=== PATIENT | female | born 1975 | race Caucasian/White ===

== ENCOUNTER → 2020-09-12 00:56 | Outpatient (CLI) | payer BC, SELFPAY ==
[2020-09-12 20:53] LABS: SARS-CoV-2 RNA PCR Negative
== END ==
PROVIDERS: PCP Internal Medicine; Visit Provider Internal Medicine Gastroenterology
DX: Z01.812 Encounter for preprocedural laboratory examination (principal); Z20.822 Contact with and (suspected) exposure to COVID-19
CPT/HCPCS: C9803; U0003; U0005

== ENCOUNTER 2020-09-16 00:36 | Day surgery (SDC) | payer BC, SELFPAY ==
[2020-09-08 15:32] VITALS: BMI 29.4
[2020-09-16 10:18] VITALS: BP 133/100; PULSE 65; RESP 16; TEMP 36.4; O2SAT 99; BMI 30.1
[2020-09-16] MEDS: LACTATED RINGERS 1,000 ML 150 ML IV CONT (10:30)
--- NOTE | 2020-09-16 10:57 | WPDANESEPPF ---
Anes - Initial Pre Proc Eval Procedure: Operation Date: 09/16/20 11:30 Proposed Procedures p Esophagogastroduodenoscopy - Hermelindo Stewart MD Date/Time: 09/16/20 10:57 Surgeon: Hermelindo Stewart MD Pre Op Diagnosis: nausea, RUQ pain Patient Data Age: 44 Gender: F Height: 5 ft 3 in Weight: 77.2 kg Last Vital Signs Temp 97.5 F L 09/16/20 10:18 Pulse 65 09/16/20 10:18 Resp 16 09/16/20 10:18 BP 133/100 H 09/16/20 10:18 Pulse Ox 99 09/16/20 10:18 Allergies Allergy/AdvReac Type Severity Reaction Status Date / Time azithromycin Allergy Unknown unknown Verified 09/16/20 10:16 topiramate [From Topamax] Allergy Unconscious Verified 09/16/20 10:16 Home Medications Medication Instructions Recorded Confirmed Type fenofibrate 120 mg tablet 120 mg PO DAILY 08/20/20 09/08/20 History levothyroxine 50 mcg capsule 50 mcg PO DAILY 08/20/20 09/08/20 History onabotulinumtoxinA 200 unit 200 unit IM ONCE 08/20/20 09/08/20 History solution for injection ondansetron HCl 8 mg tablet 8 mg PO Q12H 08/20/20 09/08/20 History estradiol 2 mg PO DAILY 09/08/20 09/08/20 History Patient hx anesthesia problems: none Family hx anesthesia problems: none PMFSH Past Medical History Medical History (Updated 08/20/20 @ 11:24 by Hermelindo Stewart MD) Clemons esophagus C. difficile colitis Family history- stomach cancer Fatty liver Hyperlipidemia Migraine Nausea RUQ pain Surgical History Surgical History (Updated 08/20/20 @ 10:52 by Janelle Severino CMA) H/O: hysterectomy History of appendectomy Family History Family History (Updated 08/20/20 @ 10:54 by Janelle Severino CMA) Father Stomach cancer Diabetes mellitus Hypertension Mother Bile duct cancer COPD (chronic obstructive pulmonary disease) Sibling Diabetes mellitus Hypertension Depression Thyroid disorder Social History Social History (Updated 08/20/20 @ 10:55 by Janelle Severino CMA) Smoking status: Never smoker Alcohol intake: current Substance use: never Substance use type: does not use Living arrangements: with family Gender identity (if verbalized by the patient): Female Spiritual care concerns: No Anes - Eval Final PreProcedure Day of Procedure 09/16/20 10:57 Patient weight: obese Heart: regular rate and rhythm Lungs: clear to auscultation Airway: Mallampati scale class II Neurological: alert and oriented Last oral intake: >/= 8 hours ASA classification: II Emergent: no Anesthetic plan: proceed Anesthesia type and monitoring: general GIVS and standard monitoring Informed Consent: The patient's anesthetic plan and its attendant risks and benefits were discussed with the patient/family/POA. Questions were solicited and answers provided to the satisfaction of the patient/family/POA.
--- NOTE | 2020-09-16 11:06 | WPDHPUPDATE1 ---
History and Physical Update Update Date/Time: 09/16/20 11:06 History and Physical has been reviewed, including an updated exam of the patient. There are NO changes in the patient's condition. Risks, benefits, and alternatives have been discussed and questions answered. Patient agrees to proceed with procedure.
[2020-09-16] MEDS: BENZOCAINE (*SP) 60 ML SPRAY CAN (HURRICAINE) 1 SPRAY MUCOUS MEM (11:11)
[2020-09-16 11:24] VITALS: BP 105/71; PULSE 65; RESP 17; O2SAT 99
[2020-09-16 11:34] VITALS: BP 118/79; PULSE 60; RESP 17; O2SAT 97
[2020-09-16 11:44] VITALS: BP 126/85; PULSE 61; RESP 17; O2SAT 97
== END 2020-09-16 11:56 | disposition home or self-care (01) ==
PROVIDERS: PCP Physician Assistant; Visit Provider Internal Medicine Gastroenterology
PROC: 0DJ08ZZ Inspection of Upper Intestinal Tract, Via Natural or Artificial Opening Endoscopic (ICD-10-PCS; CPT 43235; principal; 2020-09-16 11:30)
DX: K22.70 Barrett's esophagus without dysplasia (principal); K29.50 Unspecified chronic gastritis without bleeding; K44.9 Diaphragmatic hernia without obstruction or gangrene; Z90.49 Acquired absence of other specified parts of digestive tract; Z80.0 Family history of malignant neoplasm of digestive organs; E03.9 Hypothyroidism, unspecified; E66.9 Obesity, unspecified; Z68.30 Body mass index [BMI] 30.0-30.9, adult
CPT/HCPCS: 43239; 88305; C9803; J2704; J7120; U0003; U0005

== ENCOUNTER 2020-11-03 07:57 | Outpatient (CLI) | payer BC, SELFPAY ==
--- NOTE | ~2020-11-03 | XR_ITS ---
SMALL BOWEL SERIES ONLY INDICATION: Persistent pain. Right upper quadrant pain and nausea for 4 months. TECHNIQUE: Serial plain films and fluoroscopic spot films are performed following oral demonstration of thin barium. COMPARISON: None FINDINGS: Barium was followed sequentially through the small bowel. The mucosal pattern is unremarka ble. No evidence for stricture, polyp, diverticula or obstruction of flow of contrast. Transit time is normal. IMPRESSION: 1: Normal small bowel series. Reviewed, dictated and finalized at location A.
== END 2020-11-03 07:58 | disposition home or self-care (01) ==
PROVIDERS: PCP Physician Assistant; Visit Provider Internal Medicine Gastroenterology
DX: R10.11 Right upper quadrant pain (principal); R11.0 Nausea
CPT/HCPCS: 74250

== ENCOUNTER 2020-12-25 01:53 | Day surgery (SDC) | payer BC, SELFPAY ==
[2020-12-15 13:03] VITALS: BMI 29.7
--- NOTE | 2020-12-25 10:09 | WPDANESEPPF ---
Anes - Initial Pre Proc Eval Procedure: Operation Date: 12/25/20 12:00 Proposed Procedures p Colonoscopy - Hermelindo Stewart MD Date/Time: 12/25/20 10:09 Surgeon: Hermelindo Stewart MD Pre Op Diagnosis: Rectal Bleeding Patient Data Age: 45 Gender: F Height: 1.6 m Weight: 76 kg Allergies Allergy/AdvReac Type Severity Reaction Status Date / Time azithromycin Allergy Unknown unknown Verified 12/25/20 11:25 topiramate [From Topamax] Allergy Unconscious Verified 12/25/20 11:25 Home Medications Medication Instructions Recorded Confirmed Type levothyroxine 50 mcg capsule 75 mcg PO DAILY 08/20/20 12/25/20 History ondansetron HCl 8 mg tablet 8 mg PO Q12H 08/20/20 12/25/20 History omeprazole 40 mg capsule,delayed 40 mg PO DAILY #30 cap 09/29/20 12/25/20 Rx release sod picosulf 10 mg-magnes 3.5 160 ml PO BID #160 ml 11/18/20 12/25/20 Rx gram-citric 12 gram/160 mL oral solution cholecalciferol (vitamin D3) 125 mcg PO DAILY 12/15/20 12/25/20 History [Vitamin D3] Patient hx anesthesia problems: none Family hx anesthesia problems: none PMFSH Past Medical History Medical History (Updated 12/25/20 @ 10:10 by Julian Burns MD) Clemons esophagus C. difficile colitis Cyclic vomiting syndrome Family history- stomach cancer Fatty liver GERD (gastroesophageal reflux disease) Hyperlipidemia Hypothyroidism Migraine Nausea Overweight (BMI 25.0-29.9) RUQ pain Surgical History Surgical History (Updated 08/20/20 @ 10:52 by Janelle Severino CMA) H/O: hysterectomy History of appendectomy Family History Family History (Updated 08/20/20 @ 10:54 by Janelle Severino CMA) Father Stomach cancer Diabetes mellitus Hypertension Mother Bile duct cancer COPD (chronic obstructive pulmonary disease) Sibling Diabetes mellitus Hypertension Depression Thyroid disorder Social History Social History (Updated 08/20/20 @ 10:55 by Janelle Severino CMA) Smoking status: Never smoker Alcohol intake: current Alcohol use details: Socially Substance use: never Substance use type: does not use Living arrangements: with family Gender identity (if verbalized by the patient): Female Spiritual care concerns: No Anes - Eval Final PreProcedure Day of Procedure 12/25/20 10:09 Patient weight: overweight Heart: regular rate and rhythm Lungs: clear to auscultation and normal air movement Airway: Mallampati scale class II Neurological: alert and oriented Last oral intake: >/= 8 hours ASA classification: II Emergent: no Anesthetic plan: proceed Anesthesia type and monitoring: general GIVS Informed Consent: The patient's anesthetic plan and its attendant risks and benefits were discussed with the patient/family/POA. Questions were solicited and answers provided to the satisfaction of the patient/family/POA.
[2020-12-25 11:27] VITALS: BP 135/95; PULSE 80; RESP 16; TEMP 36.3; O2SAT 96; BMI 29.1
[2020-12-25] MEDS: LACTATED RINGERS 1,000 ML 150 ML IV CONT (11:32)
--- NOTE | 2020-12-25 12:01 | PM.HPGS ---
History of Present Illness History of Present Illness Consent: Risks, benefits, and alternatives have been discussed and questions answered. Patient agrees to proceed with procedure. Chief complaint: Rectal Bleeding Narrative: Lakesha Faye is a 45 year old female with intermittent rectal bleeding, last colonoscopy 3 years ago. Review of Systems Constitutional: Constitutional: Denies headache(s) and Denies weakness Eyes: Eyes: Denies blurry vision ENT: Reports Normal hearing present, Denies headache(s) and Denies neck pain Cardiovascular: Cardiovascular: Denies chest pain and Denies dyspnea Respiratory: Respiratory: Denies dyspnea Gastrointestinal: Gastrointestinal: Reports no additional gastrointestinal complaints Genitourinary: Genitourinary: Denies dysuria Musculoskeletal: Musculoskeletal: Denies neck pain Integumentary/Breasts: Skin/Breast: Denies dry skin Neurologic: Reports Normal hearing present, Denies headache(s) and Denies weakness Psychiatric: Psychiatric: Denies anxiety Endocrine: Endocrine: Denies change in body appearance Hematologic/Lymphatic: Hematologic/Lymphatic: Denies easy bleeding Allergic/Immunologic: Allergic/Immunologic: Denies urticaria PMFSH Past Medical History Medical History (Updated 12/25/20 @ 12:16 by Hermelindo Stewart MD) Clemons esophagus Blood in stool C. difficile colitis Cyclic vomiting syndrome Family history- stomach cancer Fatty liver GERD (gastroesophageal reflux disease) Hyperlipidemia Hypothyroidism Migraine Nausea Overweight (BMI 25.0-29.9) RUQ pain Surgical History Surgical History (Updated 08/20/20 @ 10:52 by Janelle Severino CMA) H/O: hysterectomy History of appendectomy Family History Family History (Updated 08/20/20 @ 10:54 by Janelle Severino CMA) Father Stomach cancer Diabetes mellitus Hypertension Mother Bile duct cancer COPD (chronic obstructive pulmonary disease) Sibling Diabetes mellitus Hypertension Depression Thyroid disorder Social History Social History (Updated 08/20/20 @ 10:55 by Janelle Severino CMA) Smoking status: Never smoker Alcohol intake: current Alcohol use details: Socially Substance use: never Substance use type: does not use Living arrangements: with family Gender identity (if verbalized by the patient): Female Spiritual care concerns: No Meds Home Medications and Allergies Home Medications Medication Instructions Recorded Confirmed Type levothyroxine 50 mcg capsule 75 mcg PO DAILY 08/20/20 12/25/20 History ondansetron HCl 8 mg tablet 8 mg PO Q12H 08/20/20 12/25/20 History omeprazole 40 mg capsule,delayed 40 mg PO DAILY #30 cap 09/29/20 12/25/20 Rx release sod picosulf 10 mg-magnes 3.5 160 ml PO BID #160 ml 11/18/20 12/25/20 Rx gram-citric 12 gram/160 mL oral solution cholecalciferol (vitamin D3) 125 mcg PO DAILY 12/15/20 12/25/20 History [Vitamin D3] Allergies Allergy/AdvReac Type Severity Reaction Status Date / Time azithromycin Allergy Unknown unknown Verified 12/25/20 11:41 topiramate [From Topamax] Allergy Unconscious Verified 12/25/20 11:41 Vital Signs Vital Signs - 24 hr 12/25/20 11:27 Temperature 97.4 F L Pulse Rate 80 Respiratory Rate 16 Blood Pressure 135/95 H Pulse Oximetry 96 Exam Const: General: comfortable and no acute distress HENMT: General nose exam: Normal nares present Eyes: General: appearance normal, both eyes and all related structures Neck: Neck: no JVD Resp: Auscultation: clear to auscultation bilaterally Cardio: Rate: regular rate Rhythm: regular rhythm GI: Inspection: non-distended GI Palp: Yes Soft to palpation Skin: General skin exam: normal color Neuro: General: gait normal Speech: normal speech Extrem: General: normal to inspection Psych: Mental Status: mental status grossly normal Assessment and Plan Assessment and plan (1) Blood in stool:
[2020-12-25 12:18] VITALS: BP 115/81; PULSE 66; RESP 24; O2SAT 96
[2020-12-25 12:28] VITALS: BP 118/79; PULSE 61; RESP 18; O2SAT 97
[2020-12-25 12:38] VITALS: BP 144/98; PULSE 60; RESP 20; O2SAT 98
== END 2020-12-25 12:50 | disposition home or self-care (01) ==
PROVIDERS: PCP Physician Assistant; Visit Provider Internal Medicine Gastroenterology
PROC: 0DJD8ZZ Inspection of Lower Intestinal Tract, Via Natural or Artificial Opening Endoscopic (ICD-10-PCS; CPT 45378; principal; 2020-12-25 12:00)
DX: K92.1 Melena (principal); K64.8 Other hemorrhoids; K64.4 Residual hemorrhoidal skin tags; K22.70 Barrett's esophagus without dysplasia; K76.0 Fatty (change of) liver, not elsewhere classified; E78.5 Hyperlipidemia, unspecified; E03.9 Hypothyroidism, unspecified; R10.11 Right upper quadrant pain
CPT/HCPCS: 45378; J2704; J7120